=== PATIENT | male | born 1950 | race Caucasian/White ===

== ENCOUNTER → 2021-05-28 | Outpatient (CLI) | payer MEDICARE | END | disposition home or self-care (01) | LOC: LABPAT 10:45 | PROVIDERS: ATTEND Orthopaedic Surgery | DX: Z01.812 Encounter for preprocedural laboratory examination (principal); Z22.322 Carrier or suspected carrier of Methicillin resistant Staphylococcus aureus; M17.11 Unilateral primary osteoarthritis, right knee | CPT/HCPCS: 87070 ==

== ENCOUNTER 2021-06-30 11:06 | Day surgery (SDC) | payer MEDICARE ==
[2021-06-23 17:55] VITALS: BMI 31.4
--- NOTE | 2021-06-29 10:37 | HP ---
HISTORY AND PHYSICAL CHIEF COMPLAINT: Right knee pain. HISTORY OF PRESENT ILLNESS: The patient is a 70-year-old retired male who presents with progressive right knee pain for the past several years, worsening recently. He notes stiffness, swelling and giving way. He notes it interferes with his normal functions. He has tried medications and injections with only partial temporary relief. He notes it limits him daily. PAST MEDICAL HISTORY: Significant for type 2 diabetes, hypercholesterolemia, arthritis. PAST SURGICAL HISTORY: Negative. CURRENT MEDICATIONS: Atorvastatin, metformin, insulin and Tylenol. ALLERGIES: HE DENIES DRUG ALLERGIES. FAMILY HISTORY: Significant for heart disease. SOCIAL HISTORY: Negative for current tobacco or alcohol use. REVIEW OF SYSTEMS: Sixteen-point review of systems otherwise reviewed and is noncontributory. PHYSICAL EXAMINATION: On examination, the patient is approximately 5 feet 10 inches, 220 pounds of endomorphic habitus. HEENT exam is nonfocal. Neck is supple. He has painless passive motion of the right hip. Straight-leg raise is negative. Active motion of the right knee: Minus 10 to 132 degrees of flexion. He has a moderate effusion. He is tender about the medial joint line. Collaterals are stable, Renato is negative, Maria L's is equivocal. He has genu varum alignment. His distal neurovascular exam appears intact in the right lower extremity. X-rays to include weightbearing, notch, lateral and Merchant views of the right knee obtained in the office show severe medial compartment narrowing with [id number] changes and subchondral sclerosis. IMPRESSION: Right knee severe medial compartment osteoarthrosis. RECOMMENDATIONS: I talked to the patient at length regarding his condition along with treatment options. At this point he is quite symptomatic and limited because of pain and mechanical symptoms related to his osteoarthrosis despite previous conservative measures. After thorough discussion, he opts to proceed with surgery. We will plan to proceed with right total knee arthroplasty. We will institute DVT prophylaxis postoperatively. MMODL / IJN: [id number] /
[~2021-06-30 11:06] MED LIST: ACETAMINOPHEN TAB 500 MG TAB PO PRN; HYDROmorphone 0.5 MG/0.5 ML SYRINGE IVP PRN; LIDOCAINE 1% (10MG/ML) FOR IV START INTRADERMA PRN; MELOXICAM 7.5 MG TAB PO PRN; ONDANSETRON 4 MG/2 ML VIAL IVP ONE; TRANEXAMIC ACID 1,000 MG in SODIUM CHLORIDE 0.9% 100 ML IVPB PRN
[2021-06-30] MEDS: LACTATED RINGERS 1,000 ML IV SCH (11:53)
[2021-06-30 11:54] LABS: Glucose,Whole Blood 108 mg/dL (75-99)
[2021-06-30] MEDS ORDERED: MIDAZOLAM 2 MG/2 ML VIAL IVP ONE (12:26)
[2021-06-30] MEDS ORDERED: SODIUM CHLORIDE 0.9% 100 ML BAG ONE (13:25)
[2021-06-30] MEDS ORDERED: fentaNYL (PF) 50 MCG/ML 2 ML AMP ONE (13:25)
[2021-06-30] MEDS ORDERED: MIDAZOLAM 2 MG/2 ML VIAL ONE (13:25)
[2021-06-30] MEDS ORDERED: TRANEXAMIC ACID 1,000 MG/10 ML VIAL ONE (13:25)
[2021-06-30] MEDS ORDERED: DEXAMETHASONE SOD PHOSPHATE 4 MG/ML 1 ML VIAL ONE (13:25)
[2021-06-30] MEDS ORDERED: ROPIVACAINE 5 MG/ML 30 ML VIAL ONE (13:25)
[2021-06-30] MEDS ORDERED: PROPOFOL 10 MG/ML 20 ML VIAL IV ONE (13:25)
[2021-06-30] MEDS ORDERED: LACTATED RINGERS 1,000 ML IV ONE (14:40)
[2021-06-30] MEDS ORDERED: HYDROmorphone 1 MG/ML 1 ML SYRINGE IVP PRN (15:14)
[2021-06-30] MEDS ORDERED: ACETAMINOPHEN TAB 325 MG TAB PO PRN (15:14)
[2021-06-30] MEDS ORDERED: NALOXONE 0.4 MG/ML 1 ML VIAL IV PRN (15:14)
[2021-06-30] MEDS ORDERED: ONDANSETRON 4 MG/2 ML VIAL IVP PRN (15:14)
[2021-06-30] MEDS ORDERED: HYDROmorphone 0.5 MG/0.5 ML SYRINGE IVP PRN (15:14)
[2021-06-30] MEDS ORDERED: HYDROcodone/APAP 5-325MG 1 EACH TAB PO PRN (15:14)
[2021-06-30] MEDS ORDERED: MAGNESIUM HYDROXIDE 2,400 MG/10 ML CUP PO PRN (15:14)
--- NOTE | 2021-06-30 15:43 | P.OP ---
Date of Procedure: 06/30/21 Preoperative Diagnosis: Right knee severe tricompartmental osteoarthrosis Postoperative Diagnosis: Same Procedure(s) Performed: Right total knee arthroplastycementedposterior stabilized Implants: Depuy Attune size 8 cemented femoral component, size 7 cemented tibial component, 9 mm articular surface, 38 mm cemented patellar component. This is a posterior stabilized implant. Anesthesia: regional, spinal Surgeon: Ryne Pereyra Urban Planning Teacher #1: Isak Ocampo Estimated Blood Loss (ml): 50 Pathology: other (Bone fragments) Condition: stable Disposition: PACU Indications for Procedure: The patient's 70-year-old male who presents with progressive right knee pain secondary to osteoarthrosis despite conservative measures. A discussion of the risks and benefits of operative intervention versus continued conservative measures was made with patient. He opted to proceed with surgery. Operative risks to include infection, neurovascular injury, fracture, development of blood clots, possible component loosening/failure need for subsequent procedures was discussed. Informed consent was obtained. Operative Findings: As below Description of Procedure: The patient was brought to the operating room, and after induction of spinal anesthesia the right lower extremity was prepped and draped in a normal fashion. The tourniquet was inflated to 270 mm marker. A longitudinal incision extending 3 finger breaths above the superior pole of patella extending to the medial aspect the tibial tubercle was then made. The skin and subcutaneous tissues were divided sharply. Electrocautery was used for hemostasis. A medial parapatellar arthrotomy was performed. The medial soft tissues to include the superficial and deep portions of the medial collateral ligament were elevated subperiosteally. The patella was everted. A portion of the retropatellar fat pad was excised sharply. The anterior cruciate ligament was sacrificed. Blunt retractors were placed. A starting hole was made in the distal femur 1 cm anterior to the posterior cruciate ligament origin. An intramedullary femoral guide was then inserted planning on 5 valgus distal cut with 9 mm distal re section. The cutting block was pinned in place. The distal cut was then made. The posterior referencing sizing guide was utilized. I felt size 8 was most appropriate. 3 of external rotation was built into the system and verified off the trans-epicondylar axis and the posterior condyles. The cutting block was pinned in place. The anterior, posterior, and chamfer cuts then made. Bone fragments were removed. The intercondylar guide was placed and the notch cut was made with a sagittal saw. The bone block was removed in one fragment. The trial component was then placed. There is good anterior to posterior and medial to lateral fit. The distal peg holes were drilled. The trial component was removed. Attention was then paid towards preparing the proximal femur. An extra medullary guide was utilized in line with the tibial shaft and second metatarsal distally. I planned on 4 mm resection from the medial compartment. The cutting block was pinned in place. The proximal tibial cut was then made. The bone was removed in one fragment. The remnants of the medial and lateral menisci were excised at the capsular junction with electrocautery. The tibia sized most appropriately at size 7. The trial femoral and tibial components were placed along with a 9 mm articular surface. I was able to obtain full flexion and extension with internal and external rotation. After several flexion and extension cycles, the tibial rotation was marked with electrocautery line with the medial one third of the tibial tubercle. Attention was then paid towards preparing the patella. A patella reamer was utilized taking stem to 14 mm of bone stock. A good flush cut was made. The patella sized most appropriately 38 mm. The peg holes were drilled. The trial components placed. I had good patellofemoral tracking with no hands technique. The trial components were then removed. The tibia was prepared in the appropriate rotation with appropriate drill and keel punch. The posterior osteophytes were removed with a curved osteotome. The flexion and extension gaps were checked and felt to be symmetric at 9 mm. A trial components were then removed. The bony surfaces were prepared with pulsatile lavage and dried. The tibial component was then cemented place was fully seated. Excess cement was removed. The femoral component cemented place and was fully seated. Excess cement was removed. The trial 9 mm articular surface was placed and the knee was put in full extension. The patella component was cemented place. After the cement had sufficiently hardened, the knee was again taken through a range of motion. Again I was able to obtain full flexion and extension with varus and valgus stress. The trial 9 mm articular surface was removed and the final one in serted. This was fully seated. Care was taken to avoid any soft tissue interposition. Pulsatile lavage was again utilized. The medial parapatellar arthrotomy was closed with #2 Ethibond suture. The tourniquet was deflated with approximately 65 minutes of total tourniquet time. Final hemostasis was obtained with the cautery. There was minimal bleeding therefore a deep drain was not placed. The subcutaneous tissues were reapproximated with interrupted 2-0 Vicryl sutures. The skin was reapproximated with 3-0 subcuticular strata fix suture. Skin tape and adhesive was applied. A sterile dressing was applied. The patient was awoken from sedation and transferred to recovery room in good condition. Blood loss was estimated at 50 mL. No complications were incurred. Sponge and needle counts were correct at the end of the case. Chun EASTON assisted during the major components of this case to include exposure, bone resection, implantation, and closure.
[2021-06-30] MEDS ORDERED: ROPIVACAINE 0.2%-NS ON-Q PUMP 2 MG/ML EACH MISCELLANE ONE (16:00)
--- NOTE | 2021-06-30 17:17 | XR ---
EXAMINATION TYPE: XR knee limited RT DATE OF EXAM: 06/30/2021 COMPARISON: NONE HISTORY: 70 years Male. STUDY INDICATION GIVEN: Evaluation for Postop abnormality and alignment . TECHNIQUE: Frontal and lateral radiographs of the right knee IMPRESSION: Status post right knee arthroplasty surgical changes. Hardware and alignment appear to be within norm al limit. There is an opacity along the medial aspect of the distal femur is not definitely seen on the prior s tudy and may be reflective of postsurgical changes or cortical fracture. This is only seen on the fro ntal view. There is a well-corticated 5 mm loose body in the posterior aspect of the knee joint superiorly. There is stable mild thickening of the proximal lateral cortex of the tibia.
[2021-06-30 17:20] LABS: Glucose,Whole Blood 97 mg/dL (75-99)
[2021-06-30] MEDS: INSULIN ASPART (NovoLOG) 100 UNIT/ML VIAL SQ SCH ×2 (18:00→20:46)
[2021-06-30] MEDS: HYDROcodone/APAP 7.5-325MG 1 EACH TAB PO PRN (19:18)
[2021-06-30 20:36] LABS: Glucose,Whole Blood 224 mg/dL (75-99)
[2021-06-30] MEDS: SODIUM CHLORIDE 0.9% 1,000 ML IV SCH (20:42)
[2021-06-30] MEDS: CHOLECALCIFEROL 25 MCG (1000 IU) TABLET PO SCH (20:47)
[2021-06-30] MEDS: metFORMIN 500 MG TAB PO SCH (20:47)
[2021-06-30] MEDS ORDERED: SENNOSIDES-DOCUSATE SODIUM 1 EACH TAB PO SCH (21:00)
[2021-06-30] MEDS ORDERED: NON FORMULARY DRUG (Omega-3 Fatty Acids/Fish Oil [Fish Oil 1,000 Mg Softgel] 1 EACH Capsul PO SCH (22:00)
[2021-07-01 01:11] LABS: Glucose,Whole Blood 156 mg/dL (75-99)
[2021-07-01] MEDS: SODIUM CHLORIDE 0.9% 250 ML IV SCH ×4 (01:48→03:21)
[2021-07-01] MEDS: LACTATED RINGERS 1,000 ML IV SCH (05:44)
[2021-07-01 07:12] LABS: Glucose,Whole Blood 149 mg/dL (75-99)
--- NOTE | 2021-07-01 07:13 | P.PN ---
Progress Note - Text Progress Note Date: 07/01/21 patient was seen and evaluated at bedside. Status post postoperative day 1 for Right total knee arthroplasty patient had adductor canal catheter for postop pain control. Patient rated pain at rest 5 out of 10 in severity. Patient describes pain is aching, throbbing type on the sides of the knee and back of the knee. Patient started walking with support. With activity patient pain levels are 6 out of 10 in severity. With the help of oral pain medications pain levels are tolerable. Patient denied any weakness/ numbness in lower extremities. patient denied any fever, pain over the catheter site. Physical exam: Patient vital signs stable Patient is alert awake oriented 3 responding to all questions appropriately Examination of the catheter site showed dressing intact, no leaking fluid around the catheter, no redness, no tenderness over the catheter insertion area. plan: Status post postoperative day 1 for right total knee arthroplasty with adductor canal catheter for pain control. Patient was discussed to continue the medication at the rate of 8 mL per hour until the pump is completely empty and instructed the patient how to discontinue the catheter.
[2021-07-01] MEDS ORDERED: INSULN ASP PRT/INSULIN ASPART 100 UNIT/ML 10 ML VIAL SQ SCH ×2 (07:30→17:30)
[2021-07-01] MEDS: CHOLECALCIFEROL 25 MCG (1000 IU) TABLET PO SCH (07:36)
[2021-07-01] MEDS: metFORMIN 500 MG TAB PO SCH (07:37)
[2021-07-01] MEDS: INSULIN ASPART (NovoLOG) 100 UNIT/ML VIAL SQ SCH ×2 (07:37→13:15)
[2021-07-01] MEDS: SODIUM CHLORIDE 0.9% 1,000 ML IV SCH (07:38)
[2021-07-01] MEDS: HYDROcodone/APAP 7.5-325MG 1 EACH TAB PO PRN ×2 (07:41→13:15)
[2021-07-01 07:51] VITALS: BP 150/77; PULSE 80; RESP 16; TEMP 98.6
[2021-07-01] MEDS ORDERED: ENOXAPARIN 40 MG/0.4 ML SYRINGE SQ SCH (09:00)
[2021-07-01] MEDS ORDERED: ASPIRIN 325 MG TAB PO SCH (09:00)
[2021-07-01] MEDS ORDERED: ATORVASTATIN 40 MG TAB PO SCH (09:00)
[2021-07-01] MEDS ORDERED: CALCIUM CARBONATE 500 MG CHEWABLE PO SCH (09:00)
[2021-07-01] MEDS ORDERED: CANAGLIFLOZIN 300 MG PO SCH (09:00)
[2021-07-01] MEDS ORDERED: IBUPROFEN 400 MG TAB PO PRN (09:00)
[2021-07-01] MEDS ORDERED: MULTIVITAMINS, THERA 1 EACH TAB PO SCH (09:00)
[2021-07-01] MEDS ORDERED: PIOGLITAZONE 15 MG TAB PO SCH (09:00)
[2021-07-01 09:52] LABS: Basophils # (A) 0.02 X 10*3/uL (0.00-0.10); Basophils % (A) 0.2 %; Eosinophils # (A) 0 X 10*3/uL (0.04-0.35); Eosinophils % (A) 0 %; HCT 39.4 % (39.6-50.0); HGB 12.2 g/dL (13.0-17.0); Lymphocytes # (A) 0.84 X 10*3/uL (0.90-5.00); Lymphocytes % (A) 8.6 %; MCH 25.9 pg (27.0-32.0); MCV 83.7 fL (80.0-97.0); Mean Platelet Volume 9.8 fL (9.5-12.2); Monocytes # (A) 1.23 X 10*3/uL (0.20-1.00); Monocytes % (A) 12.5 %; Neutrophils # (A) 7.67 X 10*3/uL (1.80-7.70); Neutrophils % (A) 78.2 %; Platelet Count 181 X 10*3/uL (140-440); RBC 4.71 X 10*6/uL (4.40-5.60); RDW 15.3 % (11.5-14.5); WBC 9.81 X 10*3/uL (4.50-10.00)
--- NOTE | 2021-07-01 10:13 | P.PN ---
Subjective Progress Note Date: 07/01/21 Principal diagnosis: Status post right total knee arthroplasty Patient is evaluated today bedside, he is resting comfortably. Patient is done very well with physical therapy. He states that the discomfort is generalized throughout the knee with range of motion and weightbearing. Patient denies any headaches, lightheadedness, chest pain or shortness of breath. Objective - Vital Signs Vital signs: Vital Signs Temp 98.6 F 07/01/21 07:50 Pulse 80 07/01/21 07:50 Resp 16 07/01/21 07:50 BP 150/77 07/01/21 07:50 Pulse Ox 93 L 07/01/21 07:50 Intake & Output 06/30/21 07/01/21 07/01/21 18:59 06:59 18:59 Intake Total 1550 950 236 Output Total 50 500 Balance 1500 450 236 Weight 100.3 kg Intake: IV 1550 Intake, IV Titration 950 Amount Sodium Chloride 0.9% 1, 600 000 ml @ 100 mls/hr IV . Q10H [facility] Rx#:[id number] Sodium Chloride 0.9% 250 250 ml @ 999 mls/hr IV .Q16M [facility] Rx#:[id number] ceFAZolin 2 gm In Sodium 100 Chloride 0.9% 50 ml @ 100 mls/hr IVPB Q8H [facility] Rx#: [id number] Oral 236 Output: Urine 500 Estimated Blood Loss 50 Other: # Voids 3 - Exam Right lower extremity: Incision is clean, dry, and intact. The exofin fusion tape is in good condition. There is minimal soft tissue swelling and ecchymosis surrounding the medial and lateral aspects of the incision. Calf is soft, no tenderness with palpation. Plantar flexion, dorsiflexion, EHL, FHL are intact. Sensory exam to light touch throughout the extremity is intact, dorsal pedis pulses 2+. - Labs CBC & Chem 7: 07/01/21 04:39 Labs: Abnormal Lab Results - Last 24 Hours (Table) 06/30/21 06/30/21 07/01/21 Range/Units 11:48 20:33 01:09 Hgb (13.0-17.0) g/dL Hct (39.6-50.0) % MCH (27.0-32.0) pg MCHC (32.0-37.0) g/dL RDW (11.5-14.5) % Immature Gran # (0.00-0.04) X 10*3/uL Lymphocytes # (0.90-5.00) X 10*3/uL Monocytes # (0.20-1.00) X 10*3/uL Eosinophils # (0.04-0.35) X 10*3/uL POC Glucose (mg/dL) 108 H 224 H 156 H (75-99) mg/dL 07/01/21 07/01/21 Range/Units 04:39 07:10 Hgb 12.2 L (13.0-17.0) g/dL Hct 39.4 L (39.6-50.0) % MCH 25.9 L (27.0-32.0) pg MCHC 31.0 L (32.0-37.0) g/dL RDW 15.3 H (11.5-14.5) % Immature Gran # 0.05 H (0.00-0.04) X 10*3/uL Lymphocytes # 0.84 L (0.90-5.00) X 10*3/uL Monocytes # 1.23 H (0.20-1.00) X 10*3/uL Eosinophils # 0 L (0.04-0.35) X 10*3/uL POC Glucose (mg/dL) 149 H (75-99) mg/dL Assessment and Plan Assessment: Postoperative day #1 status post right total knee arthroplasty Plan: Pain control, plan for discharge home on Grayling 7.5 mg/325 mg DVT prophylaxis, patient will resume aspirin 325 mg daily after discharge Wound care instructions were discussed the patient, this including icing and elevating along the showering instructions Medical recommendations Home health care, this including nursing and therapy of discharge Weightbearing status has been changed to 50%, there were changes noted to the medial femur. X-rays will be done in the next 2 weeks in the outpatient setting Discharge planning: Plan for discharge home today Time with Patient: Less than 30
--- NOTE | 2021-07-01 10:17 | P.DS ---
Providers Date of admission: 06/30/2021 Expected date of discharge: 07/01/21 Attending physician: Ryne Pereyra Consults: 06/30/21 15:16 Consult Physician Routine Consulting Provider: Toshia Guy Consult Reason/Comments: Medical Management Do you want consulting provider notified?: Yes Primary care physician: Sae Meehan [facility] Course: Date of admission: 06/30/2021 Date of discharge: 07/01/2021 Admission diagnosis: Status post right total knee arthroplasty Discharge diagnosis: Same Attending physician: Dr. Pereyra Surgical procedures: Right total knee arthroplasty Brief history: Patient is a 70-year-old male with a history of progressive primary right knee osteoarthritis. At this point patient has failed conservative treatment measures and has opted to proceed with a elective right total knee arthroplasty. Hospital course: Details of patient's surgery can be found in operative report. Patient tolerated the procedure well and was subsequently transported to orthopedic floor. Patient's orthopeidc and medical care was provided daily. Patient had daily laboratory tests performed for evaluation of overall blood counts. Patient had daily physical therapy to include strengthening range of motion as well as education with walker ambulation. Patient was treated with Lovenox for their postoperative DVT prophylaxis during their inpatient stay. Patient was noted to have a relatively uneventful postoperative course. Patient reported satisfactory pain control with oral pain medications by postoperative day 0. Patient showed satisfactory progress with physical therapy. Patient moved steadily through the program and had no difficulty meeting the goals by postoperative day 1. Given patient's otherwise satisfactory course and having met physical therapy goals, plan is to discharge patient home on postoperative day 1. Discharge condition/disposition: Patient will be discharged home in stable condition. Discharge medications: Instructions are given on resumption of patient's normal daily medications per primary care recommendation, in addition patient will be prescribed Bowlegs 7.5 mg/325 mg, Colace 100 mg. Discharge instructions: 1. Wound care and infection precautions, keep incision dry and covered while showering, no lotions, creams, moisturizers. No soaking, tubs, pools, hottubs. Do not scrub over the incision. 2. 50% weightbearing with walker / cane until follow-up. 3. Ice and elevate when necessary. Do not exceed 20 minutes per hour with ice pack. 4. Utilize compression sleeve until seen at first follow up appointment. 5. Visiting nursing care. 6. Home physical therapy. 7. Pain meds and anticoagulants per prescription. 8. Pain medication has potential to cause constipation. Increase oral fluid and fiber intake. Contact primary care provider if you have not had a bowel movement within 48 hours after discharge 9. No anti-inflammatory medication until discussed at first post operative visit, this including Motrin, Aleve, Mobic, Diclofenac. 10. Follow up in office at 2 weeks postop with Chun Ocampo PA-C/Hans Biggs 11. Follow up with your primary care doctor 7-10 days after discharge. 12. Contact [facility] with any questions, . Procedures: Right total knee arthroplasty Patient Condition at Discharge: Good Plan - Discharge Summary Discharge Rx Participant: No New Discharge Prescriptions: New Docusate [Colace] 100 mg PO DAILY #30 capsule HYDROcodone/APAP 7.5-325MG [Bowlegs 7.5] 1 - 2 each PO Q6HR PRN #42 tab PRN Reason: Pain No Action Cholecalciferol [Vitamin D3 (25 Mcg = 1000 Iu)] 50 mcg PO TID Ibuprofen [Motrin Ib] 400 mg PO Q8H PRN PRN Reason: Pain Pioglitazone [Actos] 15 mg PO DAILY Costa-3 Fatty Acids/Fish Oil [Fish Oil 1,000 mg Softgel] 1 each PO TID Multivitamins, Thera [Multivitamin (formulary)] 1 tab PO DAILY Aspirin 325 mg PO DAILY metFORMIN HCL [Glucophage] 1,000 mg PO BID Atorvastatin [Lipitor] 40 mg PO DAILY Insulin NPH Hum/Reg Insulin Hm [NovoLIN 70-30 100 UNIT/ML VIAL] 15 unit SQ AC-SUPPER Canagliflozin [Invokana] 300 mg PO DAILY Insulin NPH Hum/Reg Insulin Hm [NovoLIN 70-30 100 UNIT/ML VIAL] 20 unit SQ AC-BRKFST Calcium 1200 Mg 1 tab PO DAILY Discharge Medication List Aspirin 325 mg PO DAILY 06/23/21 [History] Atorvastatin [Lipitor] 40 mg PO DAILY 06/23/21 [History] Calcium 1200 Mg 1 tab PO DAILY 06/23/21 [History] Canagliflozin [Invokana] 300 mg PO DAILY 06/23/21 [History] Cholecalciferol [Vitamin D3 (25 Mcg = 1000 Iu)] 50 mcg PO TID 06/23/21 [History] Ibuprofen [Motrin Ib] 400 mg PO Q8H PRN 06/23/21 [History] Insulin NPH Hum/Reg Insulin Hm [NovoLIN 70-30 100 UNIT/ML VIAL] 15 unit SQ AC- SUPPER 06/23/21 [History] Insulin NPH Hum/Reg Insulin Hm [NovoLIN 70-30 100 UNIT/ML VIAL] 20 unit SQ AC- BRKFST 06/23/21 [History] Multivitamins, Thera [Multivitamin (formulary)] 1 tab PO DAILY 06/23/21 [History] Costa-3 Fatty Acids/Fish Oil [Fish Oil 1,000 mg Softgel] 1 each PO TID 06/23/21 [History] Pioglitazone [Actos] 15 mg PO DAILY 06/23/21 [History] metFORMIN HCL [Glucophage] 1,000 mg PO BID 06/23/21 [History] Docusate [Colace] 100 mg PO DAILY #30 capsule 07/01/21 [Rx] HYDROcodone/APAP 7.5-325MG [Bowlegs 7.5] 1 - 2 each PO Q6HR PRN #42 tab 07/01/21 [Rx] Follow up Appointment(s)/Referral(s): Ryne Pereyra MD [STAFF PHYSICIAN] - 2 Weeks Activity/Diet/Wound Care/Special Instructions: Orthopedic Discharge Instructions: 1. Wound care and infection precautions, keep incision dry and covered while showering, no lotions, creams, moisturizers. No soaking, pools, hot tubs. Do not scrub over incision. 2. 50% weightbearing with walker / cane until follow-up. 3. Ice and elevate when necessary. Do not exceed 20 minutes per hour with ice pack. 4. Utilize compression sleeve until seen at first follow up appointment. 5. Pain meds and anticoagulants per prescription. 6. Pain medication has potential to cause constipation. Increase oral fluid and fiber intake. Contact primary care provider if you have not had a bowel movement within 48 hours after discharge. 7. No anti-inflammatory medication until discussed at first post operative visit, this including Motrin, Aleve, Mobic, Diclofenac. 8. Follow up in office at 2 weeks postop with Chun Ocampo PA-C/Hans Jackson PA-C 9. Follow up with your primary care doctor 7-10 days after discharge. 10. Contact [facility] with any questions, . Discharge Disposition: HOME WITH HOME HEALTH SERVICES
[2021-07-01 11:35] LABS: Glucose,Whole Blood 222 mg/dL (75-99)
--- NOTE | 2021-07-01 13:25 | P.ANPRN ---
Procedure Note - Anesthesia - Nerve Block Performed Right Adductor Canal Infusion Time Out Performed: Yes Date of Procedure: 06/30/20 Procedure Start Time: 12:25 Procedure Stop Time: 12:36 Location of Patient: PreOp Indication: Acute Post-Operative Pain, Requested by Surgeon Sedation Type: Sedate with meaningful contact maintained Preparation: Sterile Prep, Sterile Dressing Position: Supine Catheter: Indwelling Needle Types: Pajunk Needle Gauge: 21 Ultrasound used to visualize needle placement: Yes Ultrasound used to observe medication spread: Yes Blood Aspirated: No Pain Paresthesia on Injection Noted: No Resistance on Injection: Normal Image Stored and Saved: Yes Events: Uneventful and Well Tolerated (ropi .5% 20cc)
--- NOTE | 2021-07-01 13:26 | P.ANPRN ---
Procedure Note - Anesthesia - Nerve Block Performed Right Clayck Single Time Out Performed: Yes Date of Procedure: 06/30/21 Procedure Start Time: 12:37 Procedure Stop Time: 12:40 Location of Patient: PreOp Indication: Acute Post-Operative Pain, Requested by Surgeon Sedation Type: Sedate with meaningful contact maintained Preparation: Sterile Prep Position: Supine Needle Types: Pajunk Needle Gauge: 21 Ultrasound used to visualize needle placement: Yes Ultrasound used to observe medication spread: Yes Blood Aspirated: No Pain Paresthesia on Injection Noted: No Resistance on Injection: Normal Image Stored and Saved: Yes Events: Uneventful and Well Tolerated (ropi .5% 25cc plus dexamethasone 4mg)
--- NOTE | 2021-07-01 16:34 | P.CONS ---
History of Present Illness - Reason for Consult Consult date: 07/01/21 - History of Present Illness HISTORY OF PRESENT ILLNESS This is a 70-year-old male patient of Dr. Gonzalez with past medical history of hypertension, hyperlipidemia, diabetes, obstructive sleep apnea on CPAP. Patient underwent right knee arthroplasty with Dr. Pereyra. Patient has had no postop complications. He denies having any chest pain or shortness of breath, no abdominal pain, nausea or vomiting. No lightheadedness or dizziness. Patient is been afebrile, heart rate 80, blood pressure 150/77, pulse ox 93% on room air. Patient is expecting discharge home today. Medication reconciliation is been reviewed for discharge. REVIEW OF SYSTEMS Constitutional: No fever, no chills, no night sweats. No weight change. No weakness, fatigue or lethargy. No daytime sleepiness. EENT: No headache. No blurred vision or double vision, no loss of vision. No loss of Hearing, no ringing in the ears, no dizziness. No nasal drainage or congestion. No epistaxis. No sore throat. Lungs: No shortness of breath, cough, no sputum production. No wheezing. Cardiovascular: No chest pain, no lower extremity edema. No palpitations. No paroxysmal nocturnal dyspnea. No orthopnea. No lightheadedness or dizziness. No syncopal episodes. Abdominal: No abdominal pain. No nausea, vomiting. No diarrhea. No constipation. No bloody or tarry stools. No loss of appetite. Genitourinary: No dysuria, increased frequency, urgency. No urinary retention. Musculoskeletal: No myalgias. No muscle weakness, no gait dysfunction, no frequent falls. No back pain. No neck pain. Right knee discomfort. Integumentary: No wounds, no lesions. No rash or pruritus. No unusual bruising. No change in hair or nails. Neurologic: No aphasia. No facial droop. No change in mentation. No head injury. No headache. No paralysis. No paresthesia. Psychiatric: No depression. No anxiety. No mood swings. Endocrine: No abnormal blood sugars. No weight change. No excessive sweating or thirst. No cold intolerance. SOCIAL HISTORY Patient is a nonsmoker, he drinks alcohol daily. Patient lives at home with his . He utilizes CPAP at home. FAMILY HISTORY Mother at age 87 from kidney failure with history of murmur. Father at age 57 from consultations of diabetes and coronary artery disease. Patient does not have any sisters. He has 1 brother that at age 74 from myocardial infarction and one brother that is living with no major medical problems. He does not have any children. PHYSICAL EXAMINATION Gen: This is a 70-year-old male. He is sitting up in his bed and appears to be comfortable and in no acute distress. Patient's is at bedside. HEENT: Head is atraumatic, normocephalic. Pupils equal, round. Sclerae is anicteric. NECK: Supple. No JVD. No lymphadenopathy. No thyromegaly. LUNGS: Clear to auscultation. No wheezes or rhonchi. No intercostal retractions. HEART: Regular rate and rhythm. No murmur. ABDOMEN: Soft. Bowel sounds are present. No masses. No tenderness. EXTREMITIES: No calf tenderness. Small dressing in place to the right knee. Trace edema. NEUROLOGICAL: Patient is awake, alert and oriented x3. Cranial nerves 2 through 12 are grossly intact. ASSESSMENT AND PLAN 1. Osteoarthritis status post right knee arthroplasty 06/30. Patient has had no postop complications, done well with physical therapy. Continue current pain management, activity level, incentive spirometry to reduce incidence of atelectasis and hospital-acquired pneumonia. 2. Hypertension. Continue to monitor. 3. Diabetes mellitus type 2. Continue Invokana in her milligrams daily, NPH 7030 20 units with breakfast and 15 units with supper, metformin 1000 mg twice daily, Actos 50 mg daily. 4. Obstructive sleep apnea. Continue CPAP use. 5. Hyperlipidemia. Continue atorvastatin 40 mg daily. DISCHARGE PLAN Home. Impression and plan of care have been directed as dictated by the signing physician. Racquel Bass nurse practitioner acting as scribe for signing physician. Past Medical History Past Medical History: Diabetes Mellitus, Hearing Disorder / Deafness, Hyperlipidemia, Osteoarthritis (OA), Sleep Apnea/CPAP/BIPAP Additional Past Medical History / Comment(s): Uses CPAP. History of Any Multi-Drug Resistant Organisms: None Reported Additional Past Surgical History / Comment(s): Colonoscopy x2. Past Anesthesia/Blood Transfusion Reactions: No Reported Reaction Past Psychological History: No Psychological Hx Reported Smoking Status: Never smoker Past Alcohol Use History: Daily Additional Past Alcohol Use History / Comment(s): couple ounces liquor daily, no history of ETOH withdrawl Past Drug Use History: None Reported - Past Family History Mother Family Medical History: Congestive Heart Failure (CHF) Medications and Allergies Home Medications Medication Instructions Recorded Confirmed Type Aspirin 325 mg PO DAILY 06/23/21 06/30/21 History Atorvastatin [Lipitor] 40 mg PO DAILY 06/23/21 06/30/21 History Calcium 1200 Mg 1 tab PO DAILY 06/23/21 06/30/21 History Canagliflozin [Invokana] 300 mg PO DAILY 06/23/21 06/30/21 History Cholecalciferol [Vitamin D3 (25 50 mcg PO TID 06/23/21 06/30/21 History Mcg = 1000 Iu)] Ibuprofen [Motrin Ib] 400 mg PO Q8H PRN 06/23/21 06/30/21 History Insulin NPH Hum/Reg Insulin Hm 15 unit SQ AC-SUPPER 06/23/21 06/30/21 History [NovoLIN 70-30 100 UNIT/ML VIAL] Insulin NPH Hum/Reg Insulin Hm 20 unit SQ AC-BRKFST 06/23/21 06/30/21 History [NovoLIN 70-30 100 UNIT/ML VIAL] Multivitamins, Thera [Multivitamin 1 tab PO DAILY 06/23/21 06/30/21 History (formulary)] [place]-3 Fatty Acids/Fish Oil [Fish 1 each PO TID 06/23/21 06/30/21 History Oil 1,000 mg Softgel] Pioglitazone [Actos] 15 mg PO DAILY 06/23/21 06/30/21 History metFORMIN HCL [Glucophage] 1,000 mg PO BID 06/23/21 06/30/21 History Docusate [Colace] 100 mg PO DAILY #30 capsule 07/01/21 Rx HYDROcodone/APAP 7.5-325MG [[place] 1 - 2 each PO Q6HR PRN #42 tab 07/01/21 Rx 7.5] Sennosides-Docusate Sodium 2 each PO HS tab 07/01/21 Rx [Senokot-S] Allergies Allergy/AdvReac Type Severity Reaction Status Date / Time No Known Allergies Allergy Verified 06/30/21 11:24 Physical Exam Vitals: Vital Signs Temp Pulse Resp BP Pulse Ox 07/01/21 07:50 98.6 F 80 16 150/77 93 L 01/12/22 02:40 81 18 127/76 92 L 07/01/21 01:47 16 112/68 95 07/01/21 01:21 90/51 07/01/21 01:20 98.8 F 77 18 82/45 96 06/30/21 19:25 104 H 135/80 91 L 06/30/21 19:09 103 H 133/77 95 06/30/21 18:39 95 145/72 91 L 06/30/21 18:25 82 145/87 06/30/21 18:09 76 139/75 95 06/30/21 17:55 90 135/90 94 L 06/30/21 17:39 98.1 F 66 18 139/76 94 L 06/30/21 16:57 65 16 138/67 98 06/30/21 16:27 52 L 16 148/70 97 06/30/21 16:12 53 L 16 142/63 96 06/30/21 15:57 52 L 16 131/71 94 L 06/30/21 15:42 97 F L 56 L 16 127/67 94 L 06/30/21 12:48 62 16 123/72 97 06/30/21 11:37 97.8 F 69 16 135/65 95 Intake and Output 06/30/21 07/01/21 07/01/21 22:59 06:59 14:59 Intake Total 200 950 236 Output Total 50 500 Balance 150 450 236 Intake: IV 200 Intake, IV Titration 950 Amount Sodium Chloride 0.9% 1, 600 000 ml @ 100 mls/hr IV . Q10H [facility] Rx#:[id number] Sodium Chloride 0.9% 250 250 ml @ 999 mls/hr IV .Q16M [facility] Rx#:[id number] ceFAZolin 2 gm In Sodium 100 Chloride 0.9% 50 ml @ 100 mls/hr IVPB Q8H [facility] Rx#: [id number] Oral 236 Output: Urine 500 Estimated Blood Loss 50 Other: Voiding Method Urinal # Voids 3 Weight 100.3 kg Results CBC & Chem 7: 07/01/21 04:39 Labs: Abnormal Lab Results - Last 24 Hours (Table) 06/30/21 06/30/21 07/01/21 Range/Units 11:48 20:33 01:09 Hgb (13.0-17.0) g/dL Hct (39.6-50.0) % MCH (27.0-32.0) pg MCHC (32.0-37.0) g/dL RDW (11.5-14.5) % Immature Gran # (0.00-0.04) X 10*3/uL Lymphocytes # (0.90-5.00) X 10*3/uL Monocytes # (0.20-1.00) X 10*3/uL Eosinophils # (0.04-0.35) X 10*3/uL POC Glucose (mg/dL) 108 H 224 H 156 H (75-99) mg/dL 07/01/21 07/01/21 Range/Units 04:39 07:10 Hgb 12.2 L (13.0-17.0) g/dL Hct 39.4 L (39.6-50.0) % MCH 25.9 L (27.0-32.0) pg MCHC 31.0 L (32.0-37.0) g/dL RDW 15.3 H (11.5-14.5) % Immature Gran # 0.05 H (0.00-0.04) X 10*3/uL Lymphocytes # 0.84 L (0.90-5.00) X 10*3/uL Monocytes # 1.23 H (0.20-1.00) X 10*3/uL Eosinophils # 0 L (0.04-0.35) X 10*3/uL POC Glucose (mg/dL) 149 H (75-99) mg/dL
== END 2021-07-01 13:32 | disposition home health service (06) ==
LOC: OR 11:06 → 4SSUR 15:29 → OR 07-01 13:32
PROVIDERS: ATTEND Orthopaedic Surgery
DX: M17.11 Unilateral primary osteoarthritis, right knee (principal); E11.9 Type 2 diabetes mellitus without complications; I35.0 Nonrheumatic aortic (valve) stenosis; E78.00 Pure hypercholesterolemia, unspecified; G47.33 Obstructive sleep apnea (adult) (pediatric); Z82.49 Family history of ischemic heart disease and other diseases of the circulatory system; Z79.84 Long term (current) use of oral hypoglycemic drugs; Z79.4 Long term (current) use of insulin; Z79.899 Other long term (current) drug therapy
CPT/HCPCS: 27447; 97161; 64999; 64448; 76942; 85025; 88300; 87635; 73560; C1713 ×2; C1776; J2250; J1100; J0690 ×2; J2405; J1650; J3010; J2795 ×2; J2704